=== PATIENT | female | born 1950 | race Caucasian/White ===

== ENCOUNTER 2022-11-14 15:17 | Inpatient (IN) | payer MEDICARE, OTHER ==
[~2022-11-14] VITALS: Ht 162.6 cm; Wt 108.9 kg
[~2022-11-14 15:17] MED LIST: AMLODIPINE BESYL5 MG PO; ATORVASTATIN CA20 MG PO; CARVEDILOL12.5 MG PO; CLARITIN-D 241 EACH PO; COQ-1030 MG PO; GABAPENTIN300 MG PO; LANTUS100 UNITS/ SQ; LASIX40 MG PO; LOSARTAN POTAS100 MG PO; NITROGLYCERIN0.4 MG SL; ONDANSETRO4 MG/UDTAB PO; SERTRALINE HCL50 MG PO; ULTRAM50 MG PO; eliquis PO
[2022-11-14] MEDS ORDERED: IPRATROPIUM BROMIDE 0.02% 2.5 ML NEB NEB ONE (15:30)
[2022-11-14 15:39] LABS: BASOPHILS # (AUTO) 0.1 (0.0-0.1); BASOPHILS % 0.8 % (0.0-1.0); EOSINOPHILS % 0.1 % (0.0-6.0); HEMOGLOBIN 15.7 g/dL (12.0-16.0); LYMPHOCYTES # (AUTO) 0.7 (1.0-3.2); LYMPHOCYTES % 7.3 % (18.0-39.1); MEAN CORPUSCULAR HGB CONC 30.8 g/dL (31-35); MEAN CORPUSCULAR VOLUME 100.6 fL (81-99); MONOCYTES # (AUTO) 0.5 (0.2-0.8); MONOCYTES % 5.8 % (4.4-11.3); NEUTROPHILS # (AUTO) 7.7 (2.1-6.9); NEUTROPHILS % 85.7 % (38.7-80.0); PLATELET COUNT 183 x10e3/uL (140-360); RED BLOOD COUNT 5.07 x10e6/uL (3.6-5.1); RED CELL DISTRIBUTION WIDTH 13.5 % (11.7-14.4)
[2022-11-14] MEDS ORDERED: ALBUTEROL/IPRATROPIUM 3 ML NEB NEB ONE (15:45)
[2022-11-14] MEDS ORDERED: ALBUTEROL SULF 0.083% NEB SOLN 3 ML NEB NEB ONE (15:45)
[2022-11-14] MEDS ORDERED: METHYLPREDNISOLONE SOD SUCC 125 MG/2ML VIAL IV ONE (15:45)
[2022-11-14 15:58] LABS: ALBUMIN 3.7 g/dL (3.5-5.0); ALBUMIN/GLOBULIN RATIO 1.1 (0.8-2.0); ANION GAP 19.1 mmol/L (8-16); CALCIUM 9.1 mg/dL (8.4-10.2); CREATININE, SERUM 1.57 mg/dL (0.57-1.11); POTASSIUM 5.1 mmol/L (3.5-5.1)
[2022-11-14] MEDS ORDERED: ALBUTEROL/IPRATROPIUM 3 ML NEB NEB PRN (17:00)
[2022-11-14] MEDS ORDERED: ANUSOL-HC30 GM RC (19:49)
[2022-11-14] MEDS ORDERED: INSULIN SC ×2 (19:49)
[2022-11-14] MEDS ORDERED: LORATADINE10 MG PO (19:49)
[2022-11-14] MEDS ORDERED: IPRAT-ALBUT 0.5-3 ML INH (19:52)
[2022-11-14] MEDS ORDERED: ELIQUIS5 MG PO (19:52)
[2022-11-14] MEDS ORDERED: FAMOTIDINE20 MG PO (19:54)
[2022-11-14] MEDS ORDERED: FEOSOL325 MG PO (19:55)
[2022-11-14] MEDS ORDERED: FUROSEMIDE40 MG PO (19:56)
[2022-11-14 20:00] VITALS: BP 138/81
[2022-11-14] MEDS ORDERED: LEVEMIR FL100 UNIT/1 SC ×2 (20:07)
[2022-11-14] MEDS ORDERED: MONTELUKAST SOD10 MG PO (20:07)
[2022-11-14] MEDS ORDERED: NOVOLOG MI100 UNIT/1 SC (20:07)
[2022-11-14] MEDS ORDERED: GLUCOSE GEL38 GM (20:07)
[2022-11-14] MEDS ORDERED: METOPROLOL TART25 MG PO (20:07)
[2022-11-14] MEDS ORDERED: HYDRALAZINE HCL25 MG PO (20:07)
[2022-11-14] MEDS ORDERED: GUAIFENESIN-DM 15 ML PO (20:07)
[2022-11-14] MEDS ORDERED: GLUCAGON HC1 MG/1 ML IM (20:07)
[2022-11-14] MEDS ORDERED: SERTRALINE HCL50 MG PO (20:11)
[2022-11-14] MEDS ORDERED: DEXTROSE 50% SYRINGE 50 ML IV PRN (20:15)
[2022-11-14] MEDS ORDERED: TYLENOL325 MG PO (20:16)
[2022-11-14] MEDS ORDERED: ONDANSETRON ODT4 MG PO (20:16)
[2022-11-14] MEDS ORDERED: POTASSIUM CHLO20 ME1 PO (20:16)
[2022-11-14] MEDS ORDERED: LYRICA50 MG PO (20:16)
[2022-11-14] MEDS ORDERED: PULMICORT2 M1 INH (20:16)
[2022-11-14] MEDS ORDERED: ACETAMINOPHEN 325 MG TAB PO PRN (20:30)
[2022-11-14] MEDS ORDERED: TRAMADOL HCL 50 MG TAB PO PRN (20:30)
[2022-11-14] MEDS: FUROSEMIDE INJ 10 MG/ML 4 ML VIAL IV SCH (20:43)
[2022-11-14] MEDS: INSULIN LISPRO 100 UNIT/1 ML 3ML VIAL SQ SCH (20:50)
[2022-11-14 21:00] VITALS: BP 138/81
[2022-11-15] VITALS (8 sets, daily range): BP systolic 105–158; BP diastolic 50–92
[2022-11-15] MEDS ORDERED: POLYETHYLENE GLYCOL 3350 17 GM PACK PO PRN (00:45)
[2022-11-15] MEDS ORDERED: ONDANSETRON HCL INJ 2MG/ML 2ML 2 MG/ML VIAL IV PRN (00:45)
[2022-11-15] MEDS ORDERED: HYDRALAZINE HCL 20 MG/ML VIAL IV PRN (00:45)
[2022-11-15] MEDS ORDERED: APIXABAN 5 MG TABLET PO SCH (01:00)
[2022-11-15] MEDS ORDERED: INSULIN ASPART 70/30 100 UNITS/ML VIAL SC PRN (01:00)
[2022-11-15] MEDS ORDERED: METOPROLOL TARTRATE 25 MG TAB PO SCH ×2 (01:00→09:00)
[2022-11-15] MEDS ORDERED: HYDROCORTISONE 2.5% PR CRM 1 OZ TUBE TOP PRN (01:00)
[2022-11-15] MEDS ORDERED: TRAMADOL HCL 50 MG TAB PO PRN (01:00)
[2022-11-15] MEDS ORDERED: METOPROLOL TARTRATE 25 MG TAB PO ONE (01:15)
[2022-11-15 04:39] LABS: WBC,URINE (MAN) >50 /HPF (0-5)
[2022-11-15 04:40] LABS: BACTERIA,URINE MANY /HPF; CLARITY,URINE CLOUDY (CLEAR); COLOR,URINE YELLOW (YELLOW); EPITHELIAL CELLS,URINE MODERATE /LPF; LEUKOCYTE ESTERASE ,URINE 1+ (NEGATIVE); NITRITE,URINE NEGATIVE (NEGATIVE); PROTEIN,URINE DIPSTICK 1+ (NEGATIVE)
[2022-11-15 04:41] LABS: KETONES,URINE TRACE (NEGATIVE); URINE UROBILINOGEN 0.2 mg/dL (0.2 - 1)
[2022-11-15 06:06] LABS: BASOPHILS % 0.3 % (0.0-1.0); HEMATOCRIT 52.6 % (34.2-44.1); HEMOGLOBIN 15.9 g/dL (12.0-16.0); LYMPHOCYTES # (AUTO) 0.7 (1.0-3.2); MEAN CORPUSCULAR HEMOGLOBIN 30.6 pg (28-32); MEAN CORPUSCULAR HGB CONC 30.2 g/dL (31-35); MEAN CORPUSCULAR VOLUME 101.3 fL (81-99); MONOCYTES # (AUTO) 0.1 (0.2-0.8); MONOCYTES % 1.6 % (4.4-11.3); NEUTROPHILS # (AUTO) 5.9 (2.1-6.9); NEUTROPHILS % 87.7 % (38.7-80.0); PLATELET COUNT 174 x10e3/uL (140-360); RED BLOOD COUNT 5.19 x10e6/uL (3.6-5.1)
[2022-11-15 06:30] LABS: ANION GAP 19.6 mmol/L (8-16); CALCIUM 9.1 mg/dL (8.4-10.2); CHOL/HDL RATIO 3.3 (3.0-3.6); CREATININE, SERUM 1.58 mg/dL (0.57-1.11); PHOSPHORUS 4.2 MG/DL (2.3-4.7); POTASSIUM 4.6 mmol/L (3.5-5.1)
[2022-11-15] MEDS: PREGABALIN 50 MG CAP PO SCH ×3 (06:32→22:12)
[2022-11-15 06:54] LABS: THYROID STIMULATING HORMONE 1.36 uIU/mL (0.350-4.940)
[2022-11-15] MEDS: BUDESONIDE 0.5MG/2 ML NEB INH SCH ×2 (07:02→19:40)
[2022-11-15] MEDS ORDERED: FAMOTIDINE 20 MG TAB PO SCH ×2 (07:30→09:00)
[2022-11-15] MEDS ORDERED: NON-FORMULARY MEDICATION (Insulin Detemir (Levemir Flextouch) 40 UNITS) SC SCH ×2 (09:00→21:00)
[2022-11-15] MEDS: INSULIN LISPRO 100 UNIT/1 ML 3ML VIAL SQ SCH ×4 (10:27→22:47)
[2022-11-15] MEDS: FUROSEMIDE INJ 10 MG/ML 4 ML VIAL IV SCH (10:27)
[2022-11-15] MEDS: METOPROLOL TARTRATE 25 MG TAB PO SCH ×2 (10:29→22:12)
[2022-11-15] MEDS: MONTELUKAST SODIUM 10 MG TAB PO SCH (10:29)
[2022-11-15] MEDS: FAMOTIDINE 20 MG TAB PO SCH ×2 (10:30→15:47)
[2022-11-15] MEDS: DOCUSATE SODIUM 100 MG CAP PO SCH ×2 (10:30→15:47)
[2022-11-15] MEDS: HYDRALAZINE HCL 25 MG TAB PO SCH ×3 (10:30→22:12)
[2022-11-15] MEDS: LORATADINE 10 MG TAB PO SCH (10:30)
[2022-11-15] MEDS: APIXABAN 5 MG TABLET PO SCH ×2 (10:30→22:12)
[2022-11-15] MEDS: FERROUS SULFATE 325 MG TAB PO SCH ×3 (10:30→22:12)
[2022-11-15] MEDS: INSULIN GLARGINE 100 UNITS/ML VIAL SC SCH ×2 (10:33→22:48)
[2022-11-15] MEDS ORDERED: SODIUM CHLORIDE 0.9% 250ML 250 ML ONE (10:52)
[2022-11-15] MEDS: METHYLPREDNISOLONE SOD SUCC 40 MG/ML VIAL 1ML IV SCH (10:57)
[2022-11-15] MEDS: GUAIFENESIN/DEXTROMETHORPHAN LIQD 5 ML UDC PO PRN ×2 (15:47→22:21)
[2022-11-15] MEDS: SERTRALINE HCL 50 MG TAB PO SCH (22:12)
[2022-11-15] MEDS: ATORVASTATIN 40 MG TAB PO SCH (22:12)
[2022-11-16] VITALS (7 sets, daily range): BP systolic 118–163; BP diastolic 54–89
[2022-11-16] MEDS: BUDESONIDE 0.5MG/2 ML NEB INH SCH ×2 (06:10→19:50)
[2022-11-16] MEDS: PREGABALIN 50 MG CAP PO SCH ×3 (06:12→20:48)
[2022-11-16 06:27] LABS: ANION GAP 15.8 mmol/L (8-16); CALCIUM 8.6 mg/dL (8.4-10.2); CREATININE, SERUM 1.3 mg/dL (0.57-1.11); POTASSIUM 4.8 mmol/L (3.5-5.1)
[2022-11-16] MEDS ORDERED: ONDANSETRON HCL 4 MG ORAL DISINTEGRATING TAB SL PRN (10:30)
[2022-11-16] MEDS: FERROUS SULFATE 325 MG TAB PO SCH ×3 (10:33→20:48)
[2022-11-16] MEDS: DOCUSATE SODIUM 100 MG CAP PO SCH ×2 (10:33→17:02)
[2022-11-16] MEDS: MONTELUKAST SODIUM 10 MG TAB PO SCH (10:33)
[2022-11-16] MEDS: FAMOTIDINE 20 MG TAB PO SCH ×2 (10:33→17:03)
[2022-11-16] MEDS: APIXABAN 5 MG TABLET PO SCH ×2 (10:33→20:51)
[2022-11-16] MEDS: LORATADINE 10 MG TAB PO SCH (10:33)
[2022-11-16] MEDS: METHYLPREDNISOLONE SOD SUCC 40 MG/ML VIAL 1ML IV SCH ×2 (10:34→20:47)
[2022-11-16] MEDS: HYDRALAZINE HCL 25 MG TAB PO SCH ×3 (10:34→20:52)
[2022-11-16] MEDS: METOPROLOL TARTRATE 25 MG TAB PO SCH ×2 (10:34→20:50)
[2022-11-16] MEDS: FUROSEMIDE INJ 10 MG/ML 4 ML VIAL IV SCH (10:36)
[2022-11-16] MEDS: INSULIN LISPRO 100 UNIT/1 ML 3ML VIAL SQ SCH ×4 (10:37→21:00)
[2022-11-16] MEDS: INSULIN GLARGINE 100 UNITS/ML VIAL SC SCH ×2 (10:46→21:00)
[2022-11-16] MEDS: GUAIFENESIN/DEXTROMETHORPHAN LIQD 5 ML UDC PO PRN (11:32)
[2022-11-16] MEDS: GUAIFENESIN/CODEINE 5 ML LIQD PO PRN ×2 (17:03→20:48)
[2022-11-16] MEDS: ALBUTEROL/IPRATROPIUM 3 ML NEB INH PRN (19:50)
[2022-11-16] MEDS: ATORVASTATIN 40 MG TAB PO SCH (20:49)
[2022-11-16] MEDS: SERTRALINE HCL 50 MG TAB PO SCH (20:49)
[2022-11-17] VITALS (9 sets, daily range): BP systolic 111–148; BP diastolic 53–89
[2022-11-17 05:53] LABS: BASOPHILS % 0.1 % (0.0-1.0); HEMATOCRIT 47.9 % (34.2-44.1); HEMOGLOBIN 14.4 g/dL (12.0-16.0); LYMPHOCYTES # (AUTO) 0.7 (1.0-3.2); MEAN CORPUSCULAR HEMOGLOBIN 30.2 pg (28-32); MEAN CORPUSCULAR HGB CONC 30.1 g/dL (31-35); MEAN CORPUSCULAR VOLUME 100.4 fL (81-99); MONOCYTES # (AUTO) 0.2 (0.2-0.8); MONOCYTES % 2.4 % (4.4-11.3); NEUTROPHILS # (AUTO) 8.1 (2.1-6.9); NEUTROPHILS % 89.2 % (38.7-80.0); PLATELET COUNT 182 x10e3/uL (140-360); RED BLOOD COUNT 4.77 x10e6/uL (3.6-5.1); RED CELL DISTRIBUTION WIDTH 12.8 % (11.7-14.4)
[2022-11-17] MEDS: GUAIFENESIN/CODEINE 5 ML LIQD PO PRN ×2 (05:55→17:04)
[2022-11-17] MEDS: PREGABALIN 50 MG CAP PO SCH ×3 (05:55→21:05)
[2022-11-17] MEDS: BUDESONIDE 0.5MG/2 ML NEB INH SCH ×2 (06:26→19:05)
[2022-11-17 06:28] LABS: ANION GAP 14.9 mmol/L (8-16); CALCIUM 8.7 mg/dL (8.4-10.2); CREATININE, SERUM 1.31 mg/dL (0.57-1.11); POTASSIUM 4.9 mmol/L (3.5-5.1)
[2022-11-17] MEDS: FUROSEMIDE INJ 10 MG/ML 4 ML VIAL IV SCH (09:42)
[2022-11-17] MEDS: METHYLPREDNISOLONE SOD SUCC 40 MG/ML VIAL 1ML IV SCH ×2 (09:42→21:04)
[2022-11-17] MEDS: FAMOTIDINE 20 MG TAB PO SCH ×2 (09:43→16:59)
[2022-11-17] MEDS: MONTELUKAST SODIUM 10 MG TAB PO SCH (09:43)
[2022-11-17] MEDS: FERROUS SULFATE 325 MG TAB PO SCH ×3 (09:43→21:05)
[2022-11-17] MEDS: HYDRALAZINE HCL 25 MG TAB PO SCH ×3 (09:43→21:05)
[2022-11-17] MEDS: LORATADINE 10 MG TAB PO SCH (09:43)
[2022-11-17] MEDS: METOPROLOL TARTRATE 25 MG TAB PO SCH ×2 (09:45→21:05)
[2022-11-17] MEDS: INSULIN LISPRO 100 UNIT/1 ML 3ML VIAL SQ SCH ×4 (09:46→21:11)
[2022-11-17] MEDS: DOCUSATE SODIUM 100 MG CAP PO SCH ×2 (09:47→16:59)
[2022-11-17] MEDS: INSULIN GLARGINE 100 UNITS/ML VIAL SC SCH ×2 (10:00→21:12)
[2022-11-17] MEDS: APIXAB 2.5 MG TABLET PO SCH ×2 (10:05→21:05)
[2022-11-17] MEDS: ALBUTEROL/IPRATROPIUM 3 ML NEB INH PRN (19:40)
[2022-11-17] MEDS: ATORVASTATIN 40 MG TAB PO SCH (21:05)
[2022-11-17] MEDS: SERTRALINE HCL 50 MG TAB PO SCH (21:05)
[2022-11-18] VITALS (8 sets, daily range): BP systolic 102–150; BP diastolic 54–80
[2022-11-18] MEDS: PREGABALIN 50 MG CAP PO SCH ×3 (05:30→21:00)
[2022-11-18] MEDS: BUDESONIDE 0.5MG/2 ML NEB INH SCH ×2 (07:07→20:35)
[2022-11-18] MEDS: ALBUTEROL/IPRATROPIUM 3 ML NEB INH PRN ×2 (07:07→20:35)
[2022-11-18] MEDS: APIXAB 2.5 MG TABLET PO SCH ×2 (09:20→21:01)
[2022-11-18] MEDS: METHYLPREDNISOLONE SOD SUCC 40 MG/ML VIAL 1ML IV SCH ×2 (09:21→21:00)
[2022-11-18] MEDS: FUROSEMIDE INJ 10 MG/ML 4 ML VIAL IV SCH (09:21)
[2022-11-18] MEDS: LORATADINE 10 MG TAB PO SCH (09:21)
[2022-11-18] MEDS: MONTELUKAST SODIUM 10 MG TAB PO SCH (09:21)
[2022-11-18] MEDS: DOCUSATE SODIUM 100 MG CAP PO SCH ×2 (09:21→17:15)
[2022-11-18] MEDS: FAMOTIDINE 20 MG TAB PO SCH ×2 (09:21→17:15)
[2022-11-18] MEDS: HYDRALAZINE HCL 25 MG TAB PO SCH ×3 (09:22→21:01)
[2022-11-18] MEDS: METOPROLOL TARTRATE 25 MG TAB PO SCH ×2 (09:23→21:02)
[2022-11-18] MEDS: INSULIN GLARGINE 100 UNITS/ML VIAL SC SCH ×2 (09:24→21:17)
[2022-11-18] MEDS: INSULIN LISPRO 100 UNIT/1 ML 3ML VIAL SQ SCH ×4 (09:25→21:00)
[2022-11-18] MEDS: FERROUS SULFATE 325 MG TAB PO SCH ×3 (09:25→21:00)
[2022-11-18] MEDS: ATORVASTATIN 40 MG TAB PO SCH (21:00)
[2022-11-18] MEDS: SERTRALINE HCL 50 MG TAB PO SCH (21:00)
[2022-11-19] VITALS (8 sets, daily range): BP systolic 129–180; BP diastolic 75–99
[2022-11-19] MEDS: GUAIFENESIN/CODEINE 5 ML LIQD PO PRN ×2 (04:09→15:13)
[2022-11-19 05:34] LABS: BASOPHILS % 0.1 % (0.0-1.0); HEMATOCRIT 52.1 % (34.2-44.1); HEMOGLOBIN 16.1 g/dL (12.0-16.0); LYMPHOCYTES # (AUTO) 0.8 (1.0-3.2); LYMPHOCYTES % 5.9 % (18.0-39.1); MEAN CORPUSCULAR HEMOGLOBIN 30.3 pg (28-32); MEAN CORPUSCULAR HGB CONC 30.9 g/dL (31-35); MEAN CORPUSCULAR VOLUME 98.1 fL (81-99); MONOCYTES # (AUTO) 0.4 (0.2-0.8); MONOCYTES % 2.9 % (4.4-11.3); NEUTROPHILS # (AUTO) 12.3 (2.1-6.9); NEUTROPHILS % 90.7 % (38.7-80.0); PLATELET COUNT 239 x10e3/uL (140-360); RED BLOOD COUNT 5.31 x10e6/uL (3.6-5.1); RED CELL DISTRIBUTION WIDTH 12.4 % (11.7-14.4)
[2022-11-19] MEDS: PREGABALIN 50 MG CAP PO SCH ×3 (05:43→22:08)
[2022-11-19 06:15] LABS: ANION GAP 15.6 mmol/L (8-16); CALCIUM 8.8 mg/dL (8.4-10.2); CREATININE, SERUM 0.96 mg/dL (0.57-1.11); POTASSIUM 4.6 mmol/L (3.5-5.1)
[2022-11-19] MEDS: BUDESONIDE 0.5MG/2 ML NEB INH SCH ×2 (06:32→20:05)
[2022-11-19] MEDS: INSULIN LISPRO 100 UNIT/1 ML 3ML VIAL SQ SCH ×4 (07:30→22:43)
[2022-11-19] MEDS: APIXAB 2.5 MG TABLET PO SCH ×2 (09:45→22:09)
[2022-11-19] MEDS: DOCUSATE SODIUM 100 MG CAP PO SCH ×2 (09:45→16:28)
[2022-11-19] MEDS: METOPROLOL TARTRATE 25 MG TAB PO SCH ×2 (09:45→22:09)
[2022-11-19] MEDS: METHYLPREDNISOLONE SOD SUCC 40 MG/ML VIAL 1ML IV SCH (09:45)
[2022-11-19] MEDS: FUROSEMIDE 40 MG TAB PO SCH (09:45)
[2022-11-19] MEDS: FAMOTIDINE 20 MG TAB PO SCH ×2 (09:46→16:29)
[2022-11-19] MEDS: FERROUS SULFATE 325 MG TAB PO SCH ×3 (09:46→22:10)
[2022-11-19] MEDS: LORATADINE 10 MG TAB PO SCH (09:46)
[2022-11-19] MEDS: MONTELUKAST SODIUM 10 MG TAB PO SCH (09:46)
[2022-11-19] MEDS: HYDRALAZINE HCL 25 MG TAB PO SCH ×3 (09:46→22:10)
[2022-11-19] MEDS: INSULIN GLARGINE 100 UNITS/ML VIAL SC SCH ×2 (10:29→22:17)
[2022-11-19] MEDS: MEROPENEM 1 GM in SODIUM CHLORIDE 0.9% 100 ML IV SCH ×2 (15:02→22:11)
[2022-11-19] MEDS: ALBUTEROL/IPRATROPIUM 3 ML NEB INH PRN (20:05)
[2022-11-19] MEDS: ATORVASTATIN 40 MG TAB PO SCH (22:09)
[2022-11-19] MEDS: SERTRALINE HCL 50 MG TAB PO SCH (22:14)
[2022-11-20] VITALS (8 sets, daily range): BP systolic 121–151; BP diastolic 64–97
[2022-11-20] MEDS: PREGABALIN 50 MG CAP PO SCH ×3 (06:08→21:57)
[2022-11-20] MEDS: MEROPENEM 1 GM in SODIUM CHLORIDE 0.9% 100 ML IV SCH ×3 (06:08→21:57)
[2022-11-20] MEDS: BUDESONIDE 0.5MG/2 ML NEB INH SCH ×2 (06:45→18:55)
[2022-11-20] MEDS: INSULIN LISPRO 100 UNIT/1 ML 3ML VIAL SQ SCH ×5 (07:30→21:00)
[2022-11-20 07:33] LABS: BASOPHILS % 0.2 % (0.0-1.0); EOSINOPHILS # (AUTO) 0.1 (0.0-0.4); EOSINOPHILS % 0.5 % (0.0-6.0); HEMOGLOBIN 16.6 g/dL (12.0-16.0); LYMPHOCYTES # (AUTO) 1.8 (1.0-3.2); LYMPHOCYTES % 15.1 % (18.0-39.1); MEAN CORPUSCULAR HEMOGLOBIN 30.5 pg (28-32); MEAN CORPUSCULAR HGB CONC 33.2 g/dL (31-35); MEAN CORPUSCULAR VOLUME 91.7 fL (81-99); MONOCYTES # (AUTO) 1.1 (0.2-0.8); NEUTROPHILS % 74.7 % (38.7-80.0); PLATELET COUNT 233 x10e3/uL (140-360); RED BLOOD COUNT 5.45 x10e6/uL (3.6-5.1); RED CELL DISTRIBUTION WIDTH 12.9 % (11.7-14.4)
[2022-11-20 08:02] LABS: ANION GAP 14.7 mmol/L (8-16); CALCIUM 8.7 mg/dL (8.4-10.2); CREATININE, SERUM 0.92 mg/dL (0.57-1.11); POTASSIUM 3.7 mmol/L (3.5-5.1)
[2022-11-20] MEDS: HYDRALAZINE HCL 25 MG TAB PO SCH ×4 (09:00→21:57)
[2022-11-20] MEDS: INSULIN GLARGINE 100 UNITS/ML VIAL SC SCH (09:00)
[2022-11-20] MEDS: APIXAB 2.5 MG TABLET PO SCH ×2 (09:34→21:56)
[2022-11-20] MEDS: METHYLPREDNISOLONE SOD SUCC 40 MG/ML VIAL 1ML IV SCH (09:34)
[2022-11-20] MEDS: METOPROLOL TARTRATE 25 MG TAB PO SCH ×2 (09:35→21:58)
[2022-11-20] MEDS: FAMOTIDINE 20 MG TAB PO SCH ×2 (09:36→16:14)
[2022-11-20] MEDS: LORATADINE 10 MG TAB PO SCH (09:36)
[2022-11-20] MEDS: FUROSEMIDE 40 MG TAB PO SCH (09:36)
[2022-11-20] MEDS: MONTELUKAST SODIUM 10 MG TAB PO SCH (09:36)
[2022-11-20] MEDS: FERROUS SULFATE 325 MG TAB PO SCH ×3 (09:36→21:56)
[2022-11-20] MEDS: DOCUSATE SODIUM 100 MG CAP PO SCH ×2 (09:36→21:00)
[2022-11-20] MEDS: GUAIFENESIN/CODEINE 5 ML LIQD PO PRN (13:42)
[2022-11-20] MEDS ORDERED: ACETAMIN/BUTALBITAL/CAFFEINE TAB PO ONE (15:30)
[2022-11-20] MEDS: ALBUTEROL/IPRATROPIUM 3 ML NEB INH PRN (19:04)
[2022-11-20] MEDS ORDERED: INSULIN GLARGINE 100 UNITS/ML VIAL SC SCH (21:00)
[2022-11-20] MEDS: ATORVASTATIN 40 MG TAB PO SCH (21:56)
[2022-11-20] MEDS: SERTRALINE HCL 50 MG TAB PO SCH (21:57)
[2022-11-21] VITALS (9 sets, daily range): BP systolic 119–151; BP diastolic 76–95
[2022-11-21] MEDS ORDERED: SODIUM CHLORIDE 0.9% 100 ML ONE (05:07)
[2022-11-21] MEDS: PREGABALIN 50 MG CAP PO SCH ×4 (05:19→20:54)
[2022-11-21] MEDS: MEROPENEM 1 GM in SODIUM CHLORIDE 0.9% 100 ML IV SCH ×3 (05:19→21:20)
[2022-11-21] MEDS: ALBUTEROL/IPRATROPIUM 3 ML NEB INH PRN ×2 (07:02→18:53)
[2022-11-21] MEDS: BUDESONIDE 0.5MG/2 ML NEB INH SCH ×2 (07:02→18:55)
[2022-11-21] MEDS: INSULIN LISPRO 100 UNIT/1 ML 3ML VIAL SQ SCH ×4 (07:30→21:22)
[2022-11-21] MEDS: INSULIN GLARGINE 100 UNITS/ML VIAL SC SCH ×2 (08:04→21:23)
[2022-11-21] MEDS: METHYLPREDNISOLONE SOD SUCC 40 MG/ML VIAL 1ML IV SCH (08:35)
[2022-11-21] MEDS: FAMOTIDINE 20 MG TAB PO SCH ×2 (08:35→16:17)
[2022-11-21] MEDS: APIXAB 2.5 MG TABLET PO SCH ×2 (08:36→20:53)
[2022-11-21] MEDS: METOPROLOL TARTRATE 25 MG TAB PO SCH ×2 (08:36→20:56)
[2022-11-21] MEDS: HYDRALAZINE HCL 25 MG TAB PO SCH ×3 (08:36→20:54)
[2022-11-21] MEDS: LORATADINE 10 MG TAB PO SCH (08:36)
[2022-11-21] MEDS: FERROUS SULFATE 325 MG TAB PO SCH ×3 (08:36→20:55)
[2022-11-21] MEDS: FUROSEMIDE 40 MG TAB PO SCH (08:36)
[2022-11-21] MEDS: MONTELUKAST SODIUM 10 MG TAB PO SCH (08:36)
[2022-11-21] MEDS: DOCUSATE SODIUM 100 MG CAP PO SCH (08:36)
[2022-11-21] MEDS: ACETAMIN/BUTALBITAL/CAFFEINE TAB PO PRN (08:39)
[2022-11-21] MEDS ORDERED: FLUCONAZOLE 100 MG TAB PO ONE (12:00)
[2022-11-21] MEDS: NYSTATIN/TRIAMCINOLONE 15 GM CR TOP SCH (16:17)
[2022-11-21] MEDS: SERTRALINE HCL 50 MG TAB PO SCH (20:53)
[2022-11-21] MEDS: ATORVASTATIN 40 MG TAB PO SCH (20:54)
[2022-11-22] VITALS (7 sets, daily range): BP systolic 129–153; BP diastolic 72–90
[2022-11-22] MEDS: MEROPENEM 1 GM in SODIUM CHLORIDE 0.9% 100 ML IV SCH ×3 (05:20→22:39)
[2022-11-22] MEDS: PREGABALIN 50 MG CAP PO SCH ×3 (05:20→22:39)
[2022-11-22] MEDS: ALBUTEROL/IPRATROPIUM 3 ML NEB INH PRN ×2 (07:27→20:35)
[2022-11-22] MEDS: BUDESONIDE 0.5MG/2 ML NEB INH SCH ×2 (07:27→20:35)
[2022-11-22] MEDS: INSULIN GLARGINE 100 UNITS/ML VIAL SC SCH ×2 (08:28→20:50)
[2022-11-22] MEDS: INSULIN LISPRO 100 UNIT/1 ML 3ML VIAL SQ SCH ×4 (08:28→20:50)
[2022-11-22] MEDS: METHYLPREDNISOLONE SOD SUCC 40 MG/ML VIAL 1ML IV SCH (09:19)
[2022-11-22] MEDS: FAMOTIDINE 20 MG TAB PO SCH ×2 (09:19→15:28)
[2022-11-22] MEDS: HYDRALAZINE HCL 25 MG TAB PO SCH ×3 (09:20→20:52)
[2022-11-22] MEDS: METOPROLOL TARTRATE 25 MG TAB PO SCH ×2 (09:20→20:53)
[2022-11-22] MEDS: APIXAB 2.5 MG TABLET PO SCH ×2 (09:20→20:52)
[2022-11-22] MEDS: NYSTATIN/TRIAMCINOLONE 15 GM CR TOP SCH ×2 (09:21→17:00)
[2022-11-22] MEDS: FUROSEMIDE 40 MG TAB PO SCH (09:21)
[2022-11-22] MEDS: FERROUS SULFATE 325 MG TAB PO SCH ×3 (09:21→20:52)
[2022-11-22] MEDS: MONTELUKAST SODIUM 10 MG TAB PO SCH (09:21)
[2022-11-22] MEDS: LORATADINE 10 MG TAB PO SCH (09:21)
[2022-11-22] MEDS: ATORVASTATIN 40 MG TAB PO SCH (20:52)
[2022-11-22] MEDS: SERTRALINE HCL 50 MG TAB PO SCH (20:52)
[2022-11-23] VITALS: BP 136/75
[2022-11-23] MEDS: MEROPENEM 1 GM in SODIUM CHLORIDE 0.9% 100 ML IV SCH (05:44)
[2022-11-23] MEDS: PREGABALIN 50 MG CAP PO SCH (05:44)
[2022-11-23 05:47] VITALS: BP 142/90
[2022-11-23 05:55] LABS: ANION GAP 16.3 mmol/L (8-16); CALCIUM 8.9 mg/dL (8.4-10.2); CREATININE, SERUM 1.05 mg/dL (0.57-1.11); POTASSIUM 4.3 mmol/L (3.5-5.1)
[2022-11-23] MEDS ORDERED: SODIUM CHLORIDE 0.9% 250ML 250 ML ONE (06:02)
[2022-11-23] MEDS: BUDESONIDE 0.5MG/2 ML NEB INH SCH (06:40)
[2022-11-23 08:28] VITALS: BP 141/79
[2022-11-23 09:00] VITALS: BP 141/79
[2022-11-23] MEDS ORDERED: INSULIN GLARGINE 100 UNITS/ML VIAL SC SCH (09:00)
[2022-11-23] MEDS: METOPROLOL TARTRATE 25 MG TAB PO SCH (09:31)
[2022-11-23] MEDS: ACETAMIN/BUTALBITAL/CAFFEINE TAB PO PRN (09:31)
[2022-11-23] MEDS: LORATADINE 10 MG TAB PO SCH (09:32)
[2022-11-23] MEDS: APIXAB 2.5 MG TABLET PO SCH (09:32)
[2022-11-23] MEDS: MONTELUKAST SODIUM 10 MG TAB PO SCH (09:32)
[2022-11-23] MEDS: FAMOTIDINE 20 MG TAB PO SCH (09:32)
[2022-11-23] MEDS: HYDRALAZINE HCL 25 MG TAB PO SCH (09:32)
[2022-11-23] MEDS: FUROSEMIDE 40 MG TAB PO SCH (09:32)
[2022-11-23] MEDS: NYSTATIN/TRIAMCINOLONE 15 GM CR TOP SCH (09:32)
[2022-11-23] MEDS: FERROUS SULFATE 325 MG TAB PO SCH (09:32)
[2022-11-23] MEDS: INSULIN LISPRO 100 UNIT/1 ML 3ML VIAL SQ SCH ×2 (09:57→11:31)
[2022-11-23] MEDS: GUAIFENESIN/CODEINE 5 ML LIQD PO PRN (12:09)
[2022-11-23 12:12] VITALS: BP 121/74
[2022-11-23] MEDS ORDERED: Nystatin/Triamcinolone TOP (12:13)
[2022-11-23] MEDS ORDERED: MEROPENEM1 GM IV (12:13)
[2022-11-23] MEDS ORDERED: GUAIFEN-CODEINE5 ML PO (12:13)
[2022-11-23] MEDS ORDERED: Acetamin/Butalbital/Caffeine PO (12:13)
[2022-11-23] MEDS ORDERED: Insulin Lispro SQ (12:13)
[2022-11-23] MEDS ORDERED: MIRALAX17 GM PO (12:13)
[2022-11-23] MEDS ORDERED: Insulin Glargine SC ×2 (12:13)
== END 2022-11-23 14:20 | DRG 202 ==
LOC: ER 15:26 → ERHOLD 16:58 → MED/SURG3 18:01 → OBSVTOIN 11-15 08:22
PROVIDERS: ADMIT Internal Medicine; ATTEND Internal Medicine
PROC: 5A0935A Assistance with Respiratory Ventilation, Less than 24 Consecutive Hours, High Flow/Velocity Cannula (ICD-10-PCS; principal; 2022-11-14)
PROC: 5A0935A Assistance with Respiratory Ventilation, Less than 24 Consecutive Hours, High Flow/Velocity Cannula (ICD-10-PCS; 2022-11-14)
DX: J20.5 Acute bronchitis due to respiratory syncytial virus (principal); J96.01 Acute respiratory failure with hypoxia; I13.0 Hypertensive heart and chronic kidney disease with heart failure and stage 1 through stage 4 chronic kidney disease, or unspecified chronic kidney disease; I50.22 Chronic systolic (congestive) heart failure; N17.9 Acute kidney failure, unspecified; N39.0 Urinary tract infection, site not specified; Z16.12 Extended spectrum beta lactamase (ESBL) resistance; Z68.41 Body mass index [BMI] 40.0-44.9, adult; I69.354 Hemiplegia and hemiparesis following cerebral infarction affecting left non-dominant side; I48.20 Chronic atrial fibrillation, unspecified; E87.5 Hyperkalemia; E11.22 Type 2 diabetes mellitus with diabetic chronic kidney disease; E11.65 Type 2 diabetes mellitus with hyperglycemia; N18.32 Chronic kidney disease, stage 3b; Z79.4 Long term (current) use of insulin; E78.2 Mixed hyperlipidemia; E11.69 Type 2 diabetes mellitus with other specified complication; Z66 Do not resuscitate; B96.20 Unspecified Escherichia coli [E. coli] as the cause of diseases classified elsewhere; B37.31 Acute candidiasis of vulva and vagina; E66.01 Morbid (severe) obesity due to excess calories; Z74.09 Other reduced mobility; Z79.01 Long term (current) use of anticoagulants; Z88.1 Allergy status to other antibiotic agents; Z88.8 Allergy status to other drugs, medicaments and biological substances
CPT/HCPCS: 36415; 71045; 71250; 80048; 80053; 80061; 81001; 82948; 83036; 83735; 83880; 84100; 84443; 85025; 87086; 87186; 93005; 93306; 94640; 94760; 94799; 99252; 99284; G0378; J0360; J0456; J0696; J1815; J1940; J2185; J2920; J2930; J7050

== ENCOUNTER → 2023-03-16 | Outpatient (CLI) | payer MEDICARE, OTHER ==
[~2023-03-16] MED LIST changes: +ANUSOL-HC30 GM RC; +Acetamin/Butalbital/Caffeine PO; +ELIQUIS5 MG PO; +FAMOTIDINE20 MG PO; +FEOSOL325 MG PO; +FUROSEMIDE40 MG PO; +GLUCAGON HC1 MG/1 ML IM; +GLUCOSE GEL38 GM; +GUAIFEN-CODEINE5 ML PO; +GUAIFENESIN-DM 15 ML PO; +HYDRALAZINE HCL25 MG PO; +INSULIN SC; +IPRAT-ALBUT 0.5-3 ML INH; +Insulin Glargine SC; +Insulin Lispro SQ; +LEVEMIR FL100 UNIT/1 SC; +LORATADINE10 MG PO; +LYRICA50 MG PO; +MEROPENEM1 GM IV; +METOPROLOL TART25 MG PO; +MIRALAX17 GM PO; +MONTELUKAST SOD10 MG PO; +NOVOLOG MI100 UNIT/1 SC; +Nystatin/Triamcinolone TOP; +ONDANSETRON ODT4 MG PO; +POTASSIUM CHLO20 ME1 PO; +PULMICORT2 M1 INH; +REGADENOSON 0.4 MG/5 ML SYR IV ONE; +TYLENOL325 MG PO
== END ==
LOC: NM 08:28
PROVIDERS: ATTEND Internal Medicine Cardiovascular Disease
DX: I50.9 Heart failure, unspecified (principal); I48.91 Unspecified atrial fibrillation; R07.9 Chest pain, unspecified
CPT/HCPCS: 78452; 93017; A9502; J2785